=== PATIENT | male | born 1955 | race Caucasian/White ===

== ENCOUNTER 2023-04-05 06:01 | Day surgery (SDC) | payer MEDICARE, OTHER ==
[2023-04-05] MEDS ORDERED: Lactated Ringers 1,000 ML IV ONE (06:08)
[2023-04-05] MEDS: TETRACAINE 0.5% STERI-UNIT SOL OP ONE ×2 (06:34→07:12)
[2023-04-05] MEDS ORDERED: Lactated Ringers 1,000 ML IV SCH (07:00)
[2023-04-05] MEDS ORDERED: TETRACAINE 0.5% STERI-UNIT SOL OP ONE (07:00)
[2023-04-05] MEDS ORDERED: NON-FORMULARY ITEM OP ONE (07:00)
[2023-04-05] MEDS ORDERED: BETADINE 5% OPHTHALMIC 30 ML OP ONE (07:00)
[2023-04-05] MEDS ORDERED: Ak-Dilate OPHTHALMIC*** 1.065 ML, Cyclogyl 1% OPHTH SOL 1.065 ML, GATIFLOXACIN 0.5% OPH... OP ONE ×4 (07:00)
[2023-04-05] MEDS ORDERED: cefUROXime sodium 0.005 GM in Sodium Chloride Flush 30 ML*** 0.5 ML IJ ONE (07:00)
[2023-04-05] MEDS ORDERED: DIPRIVAN 200 MG/20 ML IV ONE ×2 (07:45→08:16)
[2023-04-05] MEDS ORDERED: ALBUTEROL/Proair Hfa MDI IH ONE (08:08)
[2023-04-05 08:46] VITALS: BP 138/72; PULSE 62; O2SAT 100
[2023-04-05] MEDS ORDERED: ACETAZOLAMIDE 250 MG TABLET PO ONE (09:00)
[2023-04-05] MEDS ORDERED: Zofran 4 MG/2 ML VIAL IV PRN (09:00)
[2023-04-05] MEDS ORDERED: Epinephrine Preservative Free 1 MG/ML IJ ONE (16:37)
== END 2023-04-05 08:50 | disposition home or self-care (01) ==
LOC: SDC 06:01
PROVIDERS: ATTEND Ophthalmology
DX: H25.812 Combined forms of age-related cataract, left eye (principal); E11.9 Type 2 diabetes mellitus without complications
CPT/HCPCS: 82947; C1780; J0171; J2704; A9270-GY